=== PATIENT | male | born 1995 | race Caucasian/White ===

== ENCOUNTER 2019-05-19 12:13 | Emergency (ER) | payer OTHER ==
[2019-05-19] MEDS ORDERED: ACETAMINOPHEN 325 MG TABLET (FP) PO ONE (12:14)
--- NOTE | 2019-05-19 12:14 | PDOC ---
History of Present Illness - General Chief Complaint: Foreign Body (FB) Stated Complaint: GLASS IN MY HAND Time Seen by Provider: 05/19/19 12:14 History Source: Patient Exam Limitations: No Limitations - History of Present Illness Initial Comments: 23 year old male with no PMH presented to ED for laceration to right palm 2/2 accidental glass injury x1 hour ago. 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 Pt reported there was a <1 cm piece of glass in the wound, which he removed himself [employer]. Pt denied numbness, weakness, tingling, skin color changes to hand. Pt denied chest pain, shortness of breath , vomiting. Past History - Past Medical History Allergies/Adverse Reactions: Allergies Allergy/AdvReac Type Severity Reaction Status Date / Time No Known Allergies Allergy Verified 05/19/19 12:14 Home Medications: Ambulatory Orders Cephalexin [Keflex] 500 mg PO QID 3 Days #11 capsule 05/19/19 - Immunization History Immunization Up to Date: Yes - Suicide/Smoking/Psychosocial Hx Smoking History: Never smoked Substance Use Type: None Review of Systems - Review of Systems Able to Perform ROS?: Yes Comments:: General: denied fever, chills, generalized weakness. HEENT: denied sore throat, rhinorrhea, ear pain. Cardiovascular: denied chest pain, palpitations, syncope, diaphoresis. Respiratory: denied shortness of breath, cough, sputum production, hemoptysis. Gastrointestinal: denied abdominal pain, nausea, vomiting, diarrhea, constipation, blood in stool. Genitourinary: denied dysuria, increased urinary frequency, hematuria, urinary incontinence, flank pain. Back: denied back pain. Musculoskeletal: denied joint pain, muscle pain, joint swelling. Neurological: denied headache, dizziness, numbness, tingling, weakness. Integumentary: admitted to laceration. denied rash, abrasion. Hematologic/Lymphatic: denied bruising or bleeding. *Physical Exam - Physical Exam Comments: Constitutional: Well-nourished, Well-developed, appearing stated age. HEENT: head is normocephalic, atraumatic. EOMI. PERRLA. no posterior pharyngeal erythema. no tonsillar swelling or exudates bilaterally. uvula midline. no peritonsillar swelling, tenderness or abscess. no jaw tenderness or misalignment. Neck: supple. Full ROM. Cardiovascular: regular heart rhythm. no murmurs. no pericardial friction rub. Respiratory: clear to auscultation bilaterally. no crackles, rhonchi or wheezing. no stridor. Gastrointestinal: soft, nontender. normal bowel sounds. no rebound, guarding, masses. Extremities: peripheral pulses intact. no lower extremity edema. Neurological: CN 2-12 grossly intact. moves all four extremities. Psych: awake, alert, oriented x3. follows commands. answers questions appropriately. Skin: <0.5 mm punctate wound to palm of right hand, no active bleeding, no overlying erythema or infectious changes. normal capillary refill. surgical scar to dorsum of right wrist/hand. Medical Decision Making - Medical Decision Making 23 year old male with above PMH presented to ED for laceration to right palm 2/ 2 accidental glass injury. Initial Vital Signs Temp Pulse Resp BP Pulse Ox 98.8 F 70 17 135/71 100 05/19/19 12:14 05/19/19 12:14 05/19/19 12:14 05/19/19 12:14 05/19/19 12:14 Afebrile. No tachycardia. No tachypnea. Mild hypertension. No hypoxia on room air. Labs ordered: none Imaging ordered: right hand XR Medications ordered: tylenol 975 mg PO once, boostrix IM, Keflex 500 mg once 05/19/19 12:56 Hand XR my and Dr. Dior's read: no FB. no fracture. no dislocation. -Pending official report. Wound irrigated with normal saline. Wound superficial, not deep enough for need for closure. Pt given tetanus and antibiotic ppx. Pt given return precautions, work note. Pt advised to have PCP F/U. 05/21/19 15:50 Follow up: Official XR report: Name: [facility] DEPARTMENT OF RADIOLOGY Phys: Suzie Fountain RESIDENT : 1995 Age: 23 Sex: M [facility] Acct: [id number] Loc: [address] Exam Date: 05/19/19 Status: [place] [address] Unit Number: [id number] EXAM #: TYPE/EXAM: RESULT: [id number] RAD/HAND- RIGHT Right hand: Glass injury. Pain. 3 views of the right hand have been submitted. There is no sign of fracture or subluxation and no sign of blastic or lytic changes. Swelling, foreign body or soft tissue air is not seen. If symptoms persist, further imaging and orthopedic consultation may be of help. Reported By: Sundeep Sandoval MD [id number] *DC/Admit/Observation/Transfer Diagnosis at time of Disposition: Injury from broken glass - Discharge Dispostion Disposition: HOME Condition at time of disposition: Stable Decision to Admit order: No - Prescriptions Prescriptions: Cephalexin [Keflex] 500 mg PO QID 3 Days #11 capsule - Referrals - Patient Instructions Additional Instructions: I have sent an antibiotic to your pharmacy. Take as advised on label. Do not skip doses or stop the medication early. You received the first dose in the Emergency Department. Observe the wound for the next few days for surrounding or spreading redness, discharge, skin color changes. Return to the Emergency Department for fever, chills, numbness, weakness, fever , redness to skin, discharge from wound, inability to use hand/fingers or any other new, worsening or concerning symptoms. - Post Discharge Activity Forms/Work/School Notes: Back to Work
[2019-05-19] MEDS ORDERED: DIPHTH,PERTUSS(ACELL),TET 0.5 ML DISP.SYRIN IM ONE ×2 (12:16→12:26)
[2019-05-19 12:17] VITALS: BP 135/71; PULSE 70; TEMP 98.8; BMI 37.3
[2019-05-19] MEDS ORDERED: ACETAMINOPHEN 325 MG TABLET (FP) ONE (12:25)
[2019-05-19] MEDS ORDERED: CEPHALEXIN MONOHYDRATE 500 MG CAPSULE (UD) PO ONE (12:56)
[2019-05-19] MEDS ORDERED: CEPHALEXIN MONOHYDRATE 500 MG CAPSULE (UD) ONE (13:00)
--- NOTE | 2019-05-19 13:16 | PDOC ---
Attending Attestation - Resident Resident Name: Suzie Fountain - ED Attending Attestation I have performed the following: I have examined & evaluated the patient, The case was reviewed & discussed with the resident, I agree w/resident's findings & plan - HPI HPI: 05/19/19 13:19 23y/o M with glass puncture to R hand. Pt placed hand on a bench and a shard punctured him. He removed it in its entirety but presents for evaluation. no bleeding/numbness/tingling/weakness/pain. unknown last dt. currently on bactrim for UTI, started yesterday. - Physicial Exam PE: 05/19/19 13:20 Vital signs normal Well-appearing, right hand: Approximated and hemostatic 5 mm linear laceration over the right palm in the area of the proximal second and third metacarpal. No palpable foreign body, no tenderness or redness or bleeding, no pus. Neurovascular intact distally with full hand and finger strength, no bony tenderness. - Medical Decision Making 05/19/19 13:21 23-year-old male with glass puncture, self removed and without any neurovascular or motor complaints. X-ray on my preliminary review shows no retained foreign body No indication for closure of wound, very superficial and already approximated with hemostasis Would prophylax with antibiotics the patient already on Bactrim, which is adequate coverage Bacitracin dressing applied, understands return criteria
== END 2019-05-19 13:12 | disposition home or self-care (01) ==
LOC: FER 12:13
PROC: 3E0234Z Introduction of Serum, Toxoid and Vaccine into Muscle, Percutaneous Approach (ICD-10-PCS; principal; 2019-05-19)
DX: S61.411A Laceration without foreign body of right hand, initial encounter (principal); W25.XXXA Contact with sharp glass, initial encounter; Y93.89 Activity, other specified; Y92.89 Other specified places as the place of occurrence of the external cause; Y99.0 Civilian activity done for income or pay
CPT/HCPCS: 73130-TC-RT-FY; 90715; 99281-25